=== PATIENT | female | born 1935 | race Asian ===

== ENCOUNTER 2024-05-01 14:56 | Outpatient (AMB) | payer OTHER, SELFPAY ==
--- NOTE | 2024-05-01 15:03 | MHC.OFFVIS ---
Intake Visit Reasons: urinary incontinence Intake Note: Patient is present for URINARY INCONTINENCE Urology Medication:NONE Antibiotic Allergy:NONE Blood Thinner:NONE Dental Laboratory Assistant Required: Yes Dental Laboratory Assistant Language: Urdu Dental Laboratory Assistant Name: [id number] Information Interpreted: non-clinical & clinical Allergies No Known Allergies Allergy (Verified 05/01/24 15:04) Medication List - Last Reconciled 05/01/24 by Vipin Lew MD alendronate 70 mg PO QWEEK calcium carbonate-vitamin D3 600 mg-10 mcg (400 unit) 1 tab PO BID diclofenac sodium 1% topical hydrochlorothiazide 25 mg PO DAILY multivitamin with folic acid 400 mcg (Daily-Wiley (with folic acid)) tabs PO polyethylene glycol 3350 17 grams PO DAILY sennosides-docusate sodium 8.6-50 mg (Stimulant Laxative Plus) PO simvastatin 10 mg PO DAILY vibegron (Gemtesa) 75 mg PO BEDTIME HPI Comments Details: Here with her daughter, urinary symptoms for about a year daytime frequency and urinary incontinence nocturia about 6 times with leakage. Denies UTIs. She reports 6 vaginal the deliver uncomplicated. Pt is on a diuretic. Discussed trial of anti muscarinic. Renal bladder ultrasound ordered. [facility] Medical History (Updated 05/01/24 @ 16:20 by KORI Tabor) H/O drainage of abscess Stage 3b chronic kidney disease Venous insufficiency of both lower extremities H/O vitamin D deficiency Dyslipidemia Osteoporosis, post-menopausal Vision problems HTN (hypertension) Surgical History (Updated 05/01/24 @ 16:20 by KORI Tabor) History of incision and drainage Social History (Updated 05/01/24 @ 16:20 by KORI Tabor) Patient Tobacco Use Status: Never used Tobacco Review of Systems Const All systems reviewed & are unremarkable except as noted in HPI and below Reports no additional complaints Eyes Reports no additional complaints ENT Reports no additional complaints Card Reports no additional complaints Resp Reports no additional complaints GI Reports no additional complaints Musc Reports no additional complaints Skin/Breast Reports system reviewed and no additional complaints, except as documented Neuro Reports no additional complaints Psych Reports no additional complaints Endo Reports no additional complaints Refugio/Lymph Reports no additional complaints Aller/Immun Reports no additional complaints Physical Exam Const General: cooperative, healthy appearing and no acute distress Orientation/consciousness: patient oriented x3 HEENT Head: Yes normal to inspection, Yes normocephalic and Yes atraumatic Eyes Conjunctivae: conjunctivae normal Neck Neck: Yes normal visual inspection and Yes trachea midline Chest Chest palpation & inspection: normal inspection of the chest Resp Effort & Inspection: normal respiratory effort Cardio Rate: regular rate GI Inspection: Yes normal to inspection Palpation (GI): Soft to palpation Neuro General: patient oriented x3 Psych Appearance: grossly normal Results AMB Urinalysis, Automated UA Leukoctes 125 [place]/uL Last Edit by Bautista Martinez [facility] on 05/01/24 15:26 UA Nitrite Negative Last Edit by Bautista Martinez [facility] on 05/01/24 15:26 UA Urobilinogen 0.2 mg/dL Last Edit by Bautista Martinez [facility] on 05/01/24 15:26 UA Protein 15 mg/dL Last Edit by Bautista Martinez [facility] on 05/01/24 15:26 UA pH 6.0 Last Edit by Bautista Martinez [facility] on 05/01/24 15:26 UA Blood 0 Ogod/uL Last Edit by Bautista Martinez [facility] on 05/01/24 15:26 UA Specific [place] 1.020 Last Edit by Bautista Martinez [facility] on 05/01/24 15:26 UA Ketone Positive Last Edit by Bautista Martinez [facility] on 05/01/24 15:26 UA Bilirubin 0 mg/dL Last Edit by Bautista Martinez [facility] on 05/01/24 15:26 UA Glucose 0 mg/dL Last Edit by Bautista Martinez [facility] on 05/01/24 15:26 Results Reviewed Results Reviewed: Laboratory Last Values Urine pH (Auto) 6.0 05/01/24 15:26 Specific [place] (Auto) 1.020 05/01/24 15:26 Urine Protein (Auto) 15 mg/dL 05/01/24 15:26 Glucose (UA)(Auto) 0 mg/dL 05/01/24 15:26 Urine Ketones (Auto) Positive 05/01/24 15:26 Urine Blood (Auto) 0 Good/uL 05/01/24 15:26 Urine Nitrite (Auto) Negative 05/01/24 15:26 Urine Bilirubin (Auto) 0 mg/dL 05/01/24 15:26 Urine Urobilinogen (Auto) 0.2 mg/dL 05/01/24 15:26 Leukocyte Esterase (Auto) 125 [place]/uL 05/01/24 15:26 Assessment & Plan Assessment & Plan (1) OAB (overactive bladder): Code(s): N32.81 - Overactive bladder Category: Medical (2) Urinary incontinence: Code(s): R32 - Unspecified urinary incontinence Category: Medical (3) Nocturia: Code(s): R35.1 - Nocturia Category: Medical Plan Discussed trial of anti muscarinic, gemtesa. Renal bladder ultrasound ordered. Orders: Orders AMB Urinalysis Automated 05/01/24 Z13.9 - Encounter for screening, unspecified Medications: New vibegron (Gemtesa) 75 mg PO BEDTIME 30 tabs 3RF Patient Instructions: The patient had an opportunity to ask questions regarding treatment plan. The patient expressed understanding and agreement with the above treatment plan. The patient is aware they should contact our office by phone for worsening of their current condition or the appearance of new symptoms. Compliance is encouraged with any medications and followup testing that is ordered. It is a privilege to be allowed the opportunity to participate in the urologic care of your patient. If you have any questions or concerns regarding treatment for the above conditions please do not hesitate to contact me. The office telephone contact is [phone]. This note is constructed in part using voice recognition software. While every effort has been made to ensure accuracy construction job cost estimator errors may have been included. Yours sincerely, Vipin Lew MD Coding Level of Care Code New Pt Level 4 (13624) Diagnoses OAB (overactive bladder) N32.81 Urinary incontinence R32 Nocturia R35.1
== END 2024-05-01 15:59 | disposition home or self-care (01) ==
PROVIDERS: PCP Nurse Practitioner; Visit Provider Urology
DX: N32.81 Overactive bladder (principal); R32 Unspecified urinary incontinence; R35.1 Nocturia
CPT/HCPCS: 99204

== ENCOUNTER → 2024-05-01 14:56 | Outpatient (BNVA) | payer OTHER, SELFPAY | PROVIDERS: PCP Nurse Practitioner; Visit Provider Urology | DX: N32.81 Overactive bladder (principal); R32 Unspecified urinary incontinence; R35.1 Nocturia | CPT/HCPCS: 81003; 99202 ==

== ENCOUNTER 2024-06-17 14:33 | Outpatient (REF) | payer OTHER, SELFPAY ==
--- NOTE | ~2024-06-17 | US_ITS ---
EXAMINATION: US RETROPERITONEAL LIMITED (RENAL ONLY) CLINICAL INFORMATION: Unspecified urinary incontinence. COMPARISON: None available. TECHNIQUE: Real-time imaging of the kidneys. FINDINGS: RIGHT KIDNEY: 8.4 x 4.7 x 4.4 cm (SAG x AP x TRV). The kidney is normal in size, contour, and echogenicity. No calculi or focal parenchymal lesions. No hydronephrosis. Cortical thinning suggesting chronic medical renal disease. LEFT KIDNEY: 8.9 x 3.9 x 2.9 cm (SAG x AP x TRV). The kidney is normal in size, contour, and echogenicity. No calculi or focal parenchymal lesions. No hydronephrosis. Cortical thinning suggesting chronic medical renal disease. US/US renal BI IMPRESSION: 1. Bilateral renal cortical thinning suggesting chronic medical renal disease. 2. No ultrasound evidence of renal obstruction or hydronephrosis. Electronically signed by: Efra Woodward MD 07/20/2024 07:58 PM EST
== END 2024-06-17 14:34 | disposition home or self-care (01) ==
LOC: HO.US 14:33
PROVIDERS: PCP Nurse Practitioner; Visit Provider Urology
DX: R32 Unspecified urinary incontinence (principal)
CPT/HCPCS: 76775

== ENCOUNTER 2024-06-20 12:43 | Outpatient (AMB) | payer OTHER, SELFPAY ==
--- NOTE | 2024-06-20 13:06 | A.OFFVIS_ITS ---
Intake Visit Reasons: FU OAB Intake Note: Patient is present for follow up OAB Urology Medication:GEMTESA Antibiotic Allergy:NONE Blood Thinner:NONE Cut And Print Machine Operator Required: No Allergies No Known Allergies Allergy (Verified 06/20/24 13:07) HPI Comments Details: 06/20/24-- Noman is here in follow up, she was initially evaluated on 05/01/24 for OAB and started on antimuscarinc. She is here with her daughter who states she is doing well on gemtesa. Will check upper tracts. Renal US. 05/01/24--Here with her daughter, urinary symptoms for about a year daytime frequency and urinary incontinence nocturia about 6 times with leakage. Denies UTIs. She reports 6 vaginal the deliver uncomplicated. Pt is on a diuretic. Discussed trial of anti muscarinic. Renal bladder ultrasound ordered. [facility] Medical History H/O drainage of abscess Stage 3b chronic kidney disease Venous insufficiency of both lower extremities H/O vitamin D deficiency Dyslipidemia Osteoporosis, post-menopausal Vision problems HTN (hypertension) Surgical History History of incision and drainage Social History Patient Tobacco Use Status: Never used Tobacco Review of Systems Const All systems reviewed & are unremarkable except as noted in HPI and below Reports no additional complaints Eyes Reports no additional complaints ENT Reports no additional complaints Card Reports no additional complaints Resp Reports no additional complaints GI Reports no additional complaints Reports as per HPI Musc Reports no additional complaints Skin/Breast Reports system reviewed and no additional complaints, except as documented Neuro Reports no additional complaints Psych Reports no additional complaints Endo Reports no additional complaints Refugio/Lymph Reports no additional complaints Aller/Immun Reports no additional complaints Results AMB Urinalysis, Automated UA Leukoctes 125 [place]/uL Last Edit by DOUG Aguero on 06/20/24 13:16 UA Nitrite Negative Last Edit by DOUG Aguero on 06/20/24 13:16 UA Urobilinogen 0.2 mg/dL Last Edit by DOUG Aguero on 06/20/24 13:1 6 UA Protein 30 mg/dL Last Edit by DOUG Aguero on 06/20/24 13:16 UA pH 6.0 Last Edit by DOUG Aguero on 06/20/24 13:16 UA Blood 0 Good/uL Last Edit by DOUG Aguero on 06/20/24 13:16 UA Specific [place] 1.015 Last Edit by DOUG Aguero on 06/20/24 13: 16 UA Ketone Negative Last Edit by DOUG Aguero on 06/20/24 13:16 UA Bilirubin 0 mg/dL Last Edit by DOUG Aguero on 06/20/24 13:16 UA Glucose 0 mg/dL Last Edit by DOUG Aguero on 06/20/24 13:16 Results Reviewed Results Reviewed: Laboratory Last Values Urine pH (Auto) 6.0 06/20/24 13:15 Specific [place] (Auto) 1.015 06/20/24 13:15 Urine Protein (Auto) 30 mg/dL 06/20/24 13:15 Glucose (UA)(Auto) 0 mg/dL 06/20/24 13:15 Urine Ketones (Auto) Negative 06/20/24 13:15 Urine Blood (Auto) 0 Good/uL 06/20/24 13:15 Urine Nitrite (Auto) Negative 06/20/24 13:15 Urine Bilirubin (Auto) 0 mg/dL 06/20/24 13:15 Urine Urobilinogen (Auto) 0.2 mg/dL 06/20/24 13:15 Leukocyte Esterase (Auto) 125 [place]/uL 06/20/24 13:15 Assessment & Plan Assessment & Plan (1) OAB (overactive bladder): Code(s): N32.81 - Overactive bladder Category: Medical (2) Urinary incontinence: Code(s): R32 - Unspecified urinary incontinence Category: Medical (3) Nocturia: Code(s): R35.1 - Nocturia Category: Medical Plan doing well on gemtesa. Will check upper tracts. Renal US. fu in 6 months Orders: Orders US renal BI 06/17/24 R32 - Unspecified urinary incontinence AMB Urinalysis Automated 06/20/24 Z13.9 - Encounter for screening, unspecified Patient Instructions: The patient had an opportunity to ask questions regarding treatment plan. The patient expressed understanding and agreement with the above treatment plan. The patient is aware they should contact our office by phone for worsening of their current condition or the appearance of new symptoms. Compliance is encouraged with any medications and followup testing that is ordered. It is a privilege to be allowed the opportunity to participate in the urologic care of your patient. If you have any questions or concerns regarding treatment for the above conditions please do not hesitate to contact me. The office telephone contact is [phone]. This note is constructed in part using voice recognition software. While every effort has been made to ensure accuracy invertebrate paleontologist errors may have been included. Yours sincerely, Vipin Lew MD Coding Level of Care Code Est Pt Level 3 (39830) Diagnoses OAB (overactive bladder) N32.81 Urinary incontinence R32 Nocturia R35.1
== END 2024-06-20 13:36 | disposition home or self-care (01) ==
PROVIDERS: PCP Nurse Practitioner; Visit Provider Urology
DX: N32.81 Overactive bladder (principal); R32 Unspecified urinary incontinence; R35.1 Nocturia
CPT/HCPCS: 99213

== ENCOUNTER → 2024-06-20 12:43 | Outpatient (BNVA) | payer OTHER, SELFPAY | PROVIDERS: PCP Nurse Practitioner; Visit Provider Urology | DX: N32.81 Overactive bladder (principal); R32 Unspecified urinary incontinence; R35.1 Nocturia | CPT/HCPCS: 81003; 99212 ==